=== PATIENT | female | born 1960 | race Caucasian/White ===

== ENCOUNTER → 2017-05-19 13:53 | Outpatient (CLI) | payer SELFPAY ==
[2017-05-19 17:43] LABS: Anion Gap 6 (5-15); BUN 21 mg/dL (7-18); BUN/Creat Ratio 22.6 RATIO (10-20); Chloride 105 mmol/L (98-107); Creatinine, Serum 0.93 mg/dL (0.55-1.02); EST Glomerular Filtration Rate 65 mL/min (>60); Est Glom Filt Rate - Afr Amer 79 mL/min (>60); Glucose 110 mg/dL (74-106); Sodium Level 140 mmol/L (136-145); Thyroid Stim Hormone (TSH) 1.91 uIU/mL (0.358-3.74)
== END ==
PROVIDERS: Family Provider Family Medicine; PCP Family Medicine; Visit Provider Family Medicine
DX: E03.9 Hypothyroidism, unspecified (principal); E11.9 Type 2 diabetes mellitus without complications
CPT/HCPCS: 36415; 80048; 84443

== ENCOUNTER → 2017-12-06 15:22 | Outpatient (CLI) | payer SELFPAY ==
[2017-12-06 18:03] LABS: Anion Gap 9 (5-15); BUN 17 mg/dL (7-18); BUN/Creat Ratio 17.3 RATIO (10-20); Calcium,Total 9.4 mg/dL (8.5-10.1); Chloride 101 mmol/L (98-107); Cholesterol 248 mg/dL (200); Creatinine, Serum 0.98 mg/dL (0.55-1.02); EST Glomerular Filtration Rate 62 mL/min (>60); Est Glom Filt Rate - Afr Amer 75 mL/min (>60); Glucose 127 mg/dL (74-106); High Density Lipoprotein 42 mg/dL; Potassium 4.1 mmol/L (3.5-5.1); Sodium Level 139 mmol/L (136-145); Thyroid Stim Hormone (TSH) 3.01 uIU/mL (0.358-3.74); Triglycerides 280 mg/dL; Very Low Density Lipoprotein 56 mg/dL (5-40)
== END ==
PROVIDERS: Family Provider Family Medicine; PCP Family Medicine; Visit Provider Family Medicine
DX: E11.9 Type 2 diabetes mellitus without complications (principal); E03.9 Hypothyroidism, unspecified
CPT/HCPCS: 36415; 80048; 80061; 84443

== ENCOUNTER → 2018-06-06 | Outpatient (CLI) | payer SELFPAY ==
[2018-06-06 14:35] LABS: Cholesterol 199 mg/dL (200); High Density Lipoprotein 38 mg/dL; Triglycerides 319 mg/dL; Very Low Density Lipoprotein 64 mg/dL (5-40)
== END | disposition home or self-care (01) ==
PROVIDERS: Family Provider Family Medicine; PCP Family Medicine; Referring Provider Family Medicine; Visit Provider Family Medicine
DX: E11.9 Type 2 diabetes mellitus without complications (principal)
CPT/HCPCS: 36415; 80061

== ENCOUNTER → 2018-12-10 11:38 | Outpatient (CLI) | payer SELFPAY ==
[2018-12-10 14:49] LABS: Anion Gap 10 (5-15); BUN 21 mg/dL (7-18); BUN/Creat Ratio 20.6 RATIO (10-20); Calcium,Total 9.4 mg/dL (8.5-10.1); Chloride 100 mmol/L (98-107); Cholesterol 247 mg/dL (200); Creatinine, Serum 1.02 mg/dL (0.55-1.02); EST Glomerular Filtration Rate 59 mL/min (>60); Est Glom Filt Rate - Afr Amer 71 mL/min (>60); Glucose 164 mg/dL (74-106); High Density Lipoprotein 51 mg/dL; Potassium 4.5 mmol/L (3.5-5.1); Sodium Level 138 mmol/L (136-145); Thyroid Stim Hormone (TSH) 5.68 uIU/mL (0.358-3.74); Triglycerides 220 mg/dL; Very Low Density Lipoprotein 44 mg/dL (5-40)
== END ==
PROVIDERS: Family Provider Family Medicine; PCP Family Medicine; Visit Provider Family Medicine
DX: E03.9 Hypothyroidism, unspecified (principal); E11.9 Type 2 diabetes mellitus without complications
CPT/HCPCS: 36415; 80048; 80061; 84443

== ENCOUNTER → 2019-06-12 14:04 | Outpatient (CLI) | payer SELFPAY ==
[2019-06-12 16:07] LABS: Anion Gap 7 (5-15); BUN 20 mg/dL (7-18); BUN/Creat Ratio 21.5 RATIO (10-20); Calcium,Total 9.4 mg/dL (8.5-10.1); Chloride 103 mmol/L (98-107); Cholesterol 223 mg/dL (200); Creatinine, Serum 0.93 mg/dL (0.55-1.02); EST Glomerular Filtration Rate 65 mL/min (>60); Est Glom Filt Rate - Afr Amer 79 mL/min (>60); Free T3 2.6 pg/mL (2.18-3.98); Glucose 118 mg/dL (74-106); High Density Lipoprotein 40 mg/dL; Potassium 3.8 mmol/L (3.5-5.1); Sodium Level 138 mmol/L (136-145); T4 Total, Thyroxin 14.5 ug/dL (4.8-13.9); Thyroid Stim Hormone (TSH) 1.37 uIU/mL (0.358-3.74); Triglycerides 274 mg/dL; Very Low Density Lipoprotein 55 mg/dL (5-40)
== END ==
PROVIDERS: PCP Family Medicine; Visit Provider Family Medicine
DX: E11.9 Type 2 diabetes mellitus without complications (principal); E03.9 Hypothyroidism, unspecified
CPT/HCPCS: 36415; 80048; 80061; 84436; 84443; 84481

== ENCOUNTER → 2019-12-12 13:50 | Outpatient (CLI) | payer SELFPAY ==
[2019-12-12 16:15] LABS: Anion Gap 5 (5-15); BUN 14 mg/dL (7-18); BUN/Creat Ratio 13.9 RATIO (10-20); Calcium,Total 9.6 mg/dL (8.5-10.1); Chloride 104 mmol/L (98-107); Cholesterol 233 mg/dL (200); Creatinine, Serum 1.01 mg/dL (0.55-1.02); EST Glomerular Filtration Rate 59 mL/min (>60); Est Glom Filt Rate - Afr Amer 71 mL/min (>60); Glucose 163 mg/dL (74-106); High Density Lipoprotein 46 mg/dL; Potassium 4.2 mmol/L (3.5-5.1); Sodium Level 140 mmol/L (136-145); Thyroid Stim Hormone (TSH) 2.76 uIU/mL (0.358-3.74); Triglycerides 222 mg/dL; Very Low Density Lipoprotein 44 mg/dL (5-40)
== END ==
PROVIDERS: PCP Family Medicine; Referring Provider Family Medicine; Visit Provider Family Medicine
DX: I10 Essential (primary) hypertension (principal); E03.9 Hypothyroidism, unspecified
CPT/HCPCS: 36415; 80048; 80061; 84443

== ENCOUNTER → 2020-12-17 13:58 | Outpatient (CLI) | payer SELFPAY ==
[2020-12-17 15:39] LABS: Microalbumin,Random Urine 14.7 mg/L (NO RANGE EST.); Microalbumin:Creatinine Ratio 19.7 mg/g CRE (<30 mg/g CRE)
[2020-12-17 15:59] LABS: Anion Gap 7 (5-15); BUN 20 mg/dL (7-18); BUN/Creat Ratio 18.9 RATIO (10-20); Calcium,Total 9.1 mg/dL (8.5-10.1); Chloride 103 mmol/L (98-107); Cholesterol 246 mg/dL (200); Creatinine, Serum 1.06 mg/dL (0.55-1.02); EST Glomerular Filtration Rate 56 mL/min (>60); Est Glom Filt Rate - Afr Amer 67 mL/min (>60); Free T3 2.5 pg/mL (2.18-3.98); Glucose 129 mg/dL (74-106); High Density Lipoprotein 42 mg/dL; Sodium Level 139 mmol/L (136-145); T4 Free Direct 1.39 ng/dL (0.76-1.46); Thyroid Stim Hormone (TSH) 1.85 uIU/mL (0.358-3.74); Triglycerides 191 mg/dL; Very Low Density Lipoprotein 38 mg/dL (5-40)
== END ==
PROVIDERS: PCP Family Medicine; Referring Provider Family Medicine; Visit Provider Family Medicine
DX: E11.9 Type 2 diabetes mellitus without complications (principal); E03.9 Hypothyroidism, unspecified
CPT/HCPCS: 36415; 80048; 80061; 82043; 82570; 84439; 84443; 84481

== ENCOUNTER 2021-03-17 14:26 | Outpatient (CLI) | payer MEDICAID, SELFPAY ==
[2021-03-17 18:51] LABS: Anion Gap 10 (5-15); BUN 23 mg/dL (7-18); BUN/Creat Ratio 21.5 RATIO (10-20); Calcium,Total 9.4 mg/dL (8.5-10.1); Chloride 100 mmol/L (98-107); Cholesterol 264 mg/dL (200); Creatinine, Serum 1.07 mg/dL (0.55-1.02); EST Glomerular Filtration Rate 55 mL/min (>60); Est Glom Filt Rate - Afr Amer 67 mL/min (>60); Free T3 2.2 pg/mL (2.18-3.98); Glucose 156 mg/dL (74-106); High Density Lipoprotein 44 mg/dL; Potassium 4.1 mmol/L (3.5-5.1); Sodium Level 135 mmol/L (136-145); T4 Free Direct 1.34 ng/dL (0.76-1.46); Thyroid Stim Hormone (TSH) 2.26 uIU/mL (0.358-3.74); Triglycerides 315 mg/dL; Very Low Density Lipoprotein 63 mg/dL (5-40)
== END 2021-03-17 23:59 | disposition home or self-care (01) ==
LOC: MTLAB 14:28
PROVIDERS: PCP Family Medicine; Referring Provider Family Medicine; Visit Provider Family Medicine
DX: E03.9 Hypothyroidism, unspecified (principal); E11.9 Type 2 diabetes mellitus without complications
CPT/HCPCS: 36415; 80048; 80061; 84439; 84443; 84481

== ENCOUNTER → 2021-06-14 | Outpatient (CLI) | payer MEDICAID, SELFPAY ==
[2021-06-14 18:32] LABS: Cholesterol 199 mg/dL (200); High Density Lipoprotein 43 mg/dL; Triglycerides 282 mg/dL; Very Low Density Lipoprotein 56 mg/dL (5-40)
== END | disposition home or self-care (01) ==
LOC: MTLAB 14:29
PROVIDERS: PCP Family Medicine; Referring Provider Family Medicine; Visit Provider Family Medicine
DX: I10 Essential (primary) hypertension (principal)
CPT/HCPCS: 36415; 80061

== ENCOUNTER → 2021-09-13 | Outpatient (CLI) | payer MEDICAID, SELFPAY ==
[2021-09-13 15:56] LABS: ALB/GLOB Ratio 1.1 RATIO (0.9-2.4); AST(SGOT) 17 U/L (15-37); Alanine Aminotransfer ALT/SGPT 41 U/L (13-56); Albumin, Serum 3.8 g/dL (3.2-5.0); Alkaline Phosphatase 78 U/L (45-117); Anion Gap 6 (5-15); BUN 16 mg/dL (7-18); BUN/Creat Ratio 16.4 RATIO (10-20); Chloride 103 mmol/L (98-107); Cholesterol 158 mg/dL (200); Creatinine, Serum 0.97 mg/dL (0.55-1.02); EST Glomerular Filtration Rate 61 mL/min (>60); Est Glom Filt Rate - Afr Amer 74 mL/min (>60); Free T3 2.2 pg/mL (2.18-3.98); Globulin 3.6 g/dL (2.2-4.2); Glucose 161 mg/dL (74-106); High Density Lipoprotein 42 mg/dL; Protein, Total 7.4 g/dL (6.4-8.2); Sodium Level 138 mmol/L (136-145); T4 Free Direct 1.46 ng/dL (0.76-1.46); Thyroid Stim Hormone (TSH) 1.06 uIU/mL (0.358-3.74); Triglycerides 200 mg/dL; Very Low Density Lipoprotein 40 mg/dL (5-40)
== END | disposition home or self-care (01) ==
LOC: MTLAB 14:03
PROVIDERS: PCP Family Medicine; Referring Provider Family Medicine; Visit Provider Family Medicine
DX: E78.5 Hyperlipidemia, unspecified (principal); E03.9 Hypothyroidism, unspecified
CPT/HCPCS: 36415; 80053; 80061; 84439; 84443; 84481

== ENCOUNTER → 2021-12-10 | Outpatient (CLI) | payer MEDICAID, SELFPAY ==
[2021-12-10 14:58] LABS: Absolute Lymphocyte Count 2.13 X10^3/uL (0.83-4.51); Absolute Neutrophil Count 6.7 X10^3/uL (2.0-7.7); Basophil# 0.07 X10^3/uL; Basophil% 0.7 % (0-1); Eosinophil# 0.14 X10^3/uL; Eosinophils% 1.4 % (0-5); Hematocrit 51.4 % (37-47); Hemoglobin 16.2 g/dL (12.0-15.0); Lymphocyte # 2.13 X10^3/ul (0.83-4.51); Lymphocyte % 21.9 % (19-41); Mean Corp Hgb Conc 31.5 g/dL (32-36); Mean Corpuscular Hgb 28.8 pg (27.0-32.0); Mean Corpuscular Volume 91.3 fL (81-99); Mean Platelet Vol. 9.7 fl (6.2-12.0); Monocyte# 0.68 X10^3/uL; NRBC Flagged by Analyzer 0 % (0-5); Neutrophil # 6.67 X10^3/uL (2.7-7.7); Neutrophil % 68.6 % (47-70); Platelet Count 353 K/mm3 (150-450); RBC Distribution Width CV 14.2 % (11.6-14.6); Red Blood Count 5.63 M/mm3 (4.2-5.4); White Blood Count 9.7 K/mm3 (4.4-11.0)
[2021-12-10 15:58] LABS: Anion Gap 9 (5-15); BUN 21 mg/dL (7-18); Calcium,Total 9.8 mg/dL (8.5-10.1); Chloride 102 mmol/L (98-107); Cholesterol 183 mg/dL (200); EST Glomerular Filtration Rate 59 mL/min (>60); Est Glom Filt Rate - Afr Amer 72 mL/min (>60); Free T3 2.1 pg/mL (2.18-3.98); Glucose 179 mg/dL (74-106); High Density Lipoprotein 45 mg/dL; Potassium 4.3 mmol/L (3.5-5.1); Sodium Level 137 mmol/L (136-145); T4 Free Direct 1.33 ng/dL (0.76-1.46); Thyroid Stim Hormone (TSH) 1.53 uIU/mL (0.358-3.74); Triglycerides 234 mg/dL; Very Low Density Lipoprotein 47 mg/dL (5-40)
== END | disposition home or self-care (01) ==
LOC: MTLAB 13:55
PROVIDERS: PCP Family Medicine; Referring Provider Family Medicine; Visit Provider Family Medicine
DX: E03.9 Hypothyroidism, unspecified (principal); E11.9 Type 2 diabetes mellitus without complications; R53.83 Other fatigue
CPT/HCPCS: 36415; 80048; 80061; 84439; 84443; 84481; 85025

== ENCOUNTER → 2022-10-27 | Outpatient (CLI) | payer MEDICAID, SELFPAY ==
[2022-10-27 16:02] LABS: Anion Gap 4 (5-15); BUN 15 mg/dL (7-18); BUN/Creat Ratio 15.6 RATIO (10-20); Calcium,Total 9.1 mg/dL (8.5-10.1); Chloride 106 mmol/L (98-107); Cholesterol 135 mg/dL (200); Creatinine, Serum 0.96 mg/dL (0.55-1.02); EST Glomerular Filtration Rate 62 mL/min (>60); Est Glom Filt Rate - Afr Amer 75 mL/min (>60); Free T3 2.2 pg/mL (2.18-3.98); Glucose 121 mg/dL (74-106); High Density Lipoprotein 43 mg/dL; Potassium 3.8 mmol/L (3.5-5.1); Sodium Level 139 mmol/L (136-145); Thyroid Stim Hormone (TSH) 0.63 uIU/mL (0.358-3.74); Triglycerides 146 mg/dL; Very Low Density Lipoprotein 29 mg/dL (5-40)
[2022-10-27 17:56] LABS: Microalbumin,Random Urine 16.8 mg/L (NO RANGE EST.); Microalbumin:Creatinine Ratio 11.3 mg/g CRE (<30 mg/g CRE)
== END | disposition home or self-care (01) ==
LOC: MTLAB 13:50
PROVIDERS: PCP Family Medicine; Visit Provider Family Medicine
DX: E03.9 Hypothyroidism, unspecified (principal); E11.9 Type 2 diabetes mellitus without complications
CPT/HCPCS: 36415; 80048; 80061; 82043; 82570; 84439; 84443; 84481

== ENCOUNTER → 2022-11-10 | Outpatient (CLI) | payer MEDICAID, SELFPAY ==
--- NOTE | 2022-11-10 12:58 | BI_ITS ---
MAMMOGRAPHY - BILATERAL SCREENING REASON FOR EXAM: Female, 62 years old. Routine annual screening examination. PERTINENT HISTORY: Non-contributory. TECHNIQUE: Digital bilateral breast lamberto (3D mammographic acquisition) in the CC and MLO projections. 2-D mediolateral oblique (MLO) and craniocaudad (CC) views of both breasts were obtained. CAD: Full Field Digital Mammography with Computer Added Detection was performed. COMPARISON: Comparison is made with prior examination dated April 27, 2013. FINDINGS: Breast Composition: There are scattered areas of fibroglandular density. There are no dominant masses or suspicious calcifications. Stable small bilateral axillary lymph nodes. No other significant abnormalities are identified. There has been no significant change since the prior study. BI/SCRN MAMM (CAD)W/LAMBERTO BILAT IMPRESSION: Stable bilateral screening mammogram. Yearly follow-up mammogram recommended. (A) ASSESSMENT CATEGORY: BIRADS Category 2: Benign. A letter regarding these results will be sent to the patient by the facility within 30 days. Approximately 10% of breast cancers are not detected by mammography. A normal mammogram should not delay biopsy of a clinically suspicious abnormality. [id number] Electronically Signed: Lance Slaughter MD at 13:57 EDT ,
== END | disposition home or self-care (01) ==
LOC: OPBI 12:56
PROVIDERS: PCP Family Medicine; Referring Provider Family Medicine; Visit Provider Family Medicine
DX: Z12.31 Encounter for screening mammogram for malignant neoplasm of breast (principal)
CPT/HCPCS: 77063; 77067

== ENCOUNTER → 2023-03-17 | Outpatient (CLI) | payer MEDICARE, SELFPAY ==
--- OUTSIDE RECORDS SUMMARY | 2023-03-17 15:25 | XMS RPT_ITS | CCD ---
Author Name Unknown Address [address] [place] [address] Organization [facility] Care Team Providers Care Welder Production Line Combination Name Role Phone Savannah López N Unavailable Savannah López N Unavailable Nakia Lópezica N Unavailable Nakia Lópezica N Unavailable Nakia Lópezica N Unavailable Medications Completed/Discontinued Medications Medication Drug Class(es) Dates Sig (Normalized) Sig (Original) acetaminophen / codeine (10 sources) Opioid Agonist Start: 10-22-2013 End: 02-20-2014 ACETAMINOPHEN-CODEI NE 300-30 MG TABS as needed ACETAMINOPHEN-CODEI NE [id number] Randy Elias Linares Problems Active Problems Problem Classification Problem Date Documented Date Episodic/Chronic Osteoarthritis (4 sources) Osteoarthritis of knee; Translations: [Osteoarthritis of knee, unspecified] Onset: 06-21-2016 06-23-2016 Chronic Other non-traumatic joint disorders (5 sources) Polyarthropathy; Translations: [Polyarthritis, unspecified] Onset: 02-10-2014 02-10-2014 Chronic Past or Other Problems Problem Classification Problem Date Documented Da te Episodic/Chronic Intestinal infection (5 sources) Infectious gastroenteritis and colitis, unspecified; Translations: [Infectious gastroenteritis and colitis, unspecified] Onset: 02-10-2014 02-10-2014 Episodic Other connective tissue disease (11 sources) Trochanteric bursitis; Translations: [Tendinitis AND/OR tenosynovitis of wrist AND/OR hand] Onset: 10-22-2013 11-19-2013 Episodic Other connective tissue disease (2 sources) Tendinitis AND/OR tenosynovitis of wrist AND/OR hand; Translations: [Other synovitis and tenosynovitis, multiple sites] Onset: 10-22-2013 10-22-2013 Episodic Other connective tissue disease (2 sources) Hand pain; Translations: [Pain in left hand] Onset: 10-22-2013 10-22-2013 Episodic Other gastrointestinal disorders (5 sources) Diarrhea; Translations: [Diarrhea, unspecified] Onset: 02-20-2014 02-21-2014 Episodic Other non-traumatic joint disorders (13 sources) Knee joint effusion; Translations: [Knee pain] Onset: 11-19-2013 01-21-2014 Episodic Other non-traumatic joint disorders (2 sources) Hip pain; Translations: [Pain in unspecified hip] Onset: 11-19-2013 11-19-2013 Episodic Other non-traumatic joint disorders (4 sources) Knee pain; Translations: [Pain in right knee] Onset: 01-21-2014 06-21-2016 Episodic Unclassified (5 sources) Encounter for screening for malignant neoplasm of colon; Translations: [Encounter for screening for malignant neoplasm of colon] Onset: 02-20-2014 02-20-2014 Episodic Results Test Name Value Interpretation Reference Range Facil ity Vital Signs Date Time Vital Sign Value Performing Clinician Facility 02-20-2014 11:35-0500 BMI (Body Mass Index) 39.22 kg/m2 [facility] Work Phone: 02-20-2014 11:35-0500 Body Temperature 98.9 [degF] [facility] Work Phone: 02-20-2014 11:35-0500 Body weight 110.22 kg [facility] Work Phone: 02-20-2014 11:35-0500 BP Diastolic 76 mm[Hg] [facility] Work Phone: 02-20-2014 11:35-0500 BP Systolic 128 mm[Hg] [facility] Work Phone: 02-20-2014 11:35-0500 BSA (Body Surface Area) 2.17 m2 [facility] [place] Work Phone: 02-20-2014 11:35-0500 Pulse (Heart Rate) 96 /min Savannah López [facility] Work Phone: 02-20-2014 11:35-0500 Respiratory Rate 16 /min [facility] Work Phone: 02-20-2014 11:35-0500 Weight 110.22 kg Savannah López [facility] Work Phone: 02-10-2014 15:06-0500 Pulse Oximetry 92 % [facility] Work Phone: 10-22-2013 10:03-0400 Height 167.64 cm [facility] Work Phone: Procedures Date Procedure Procedure Detail Performing Clinician Start: 06-21-2016 End: 06-21-2016 Documentation of current medications Savannah López Start: 06-21-2016 End: 06-21-2016 Smoking cessation education Savannah López Start: 02-10-2014 End: 02-12-2014 *CDIF - Clostridium Diff. Toxin Stool Betsey Gutierrez MD Start: 02-10-2014 End: 02-12-2014 *CMP Complete Metabolic Panel Betsey Gutierrez MD Start: 02-10-2014 End: 02-12-2014 *Hep C Antibody, Total Betsey Gutierrez MD Start: 02-10-2014 End: 02-12-2014 *MISC - Miscellaneous Lab Test #1 Betsey Gutierrez MD Start: 02-10-2014 End: 02-12-2014 *SPEP (Serum Protein Electrophoresis) Betsey Gutierrez MD Start: 02-10-2014 End: 02-12-2014 Bacteria identified in Urine by Culture Betsey Gutierrez MD Start: 02-10-2014 End: 02-12-2014 Ova and parasites identified in Stool by Concentration Betsey Gutierrez MD Start: 02-10-2014 End: 02-12-2014 *CDIF - Clostridium Diff. Toxin Stool Betsey Gutierrez MD Start: 02-10-2014 End: 02-12-2014 *CMP Complete Metabolic Panel Betsey Gutierrez MD Start: 02-10-2014 End: 02-12-2014 *Hep C Antibody, Total Betsey Gutierrez MD Start: 02-10-2014 End: 02-12-2014 *MISC - Miscellaneous Lab Test #1 Betsey Gutierrez MD Start: 02-10-2014 End: 02-12-2014 *SPEP (Serum Protein Electrophoresis) Betsey Gutierrez MD Start: 02-10-2014 End: 02-12-2014 Ova & parasites in stool Betsey Gutierrez MD Start: 02-10-2014 End: 02-12-2014 Urine culture, bacteria Betsey Villarreal Plan of Treatment Date Care Activity Detail Author Start: 06-21-2016 End: 06-21-2016 Radiologic exam knee complete 4/more views X-Ray, Knee [facility] Work Phone: Start: 06-21-2016 End: 06-21-2016 X-ray exam, knee, 4 or more X-Ray, Knee [facility] Work Phone: Start: 02-20-2014 End: 02-20-2014 Colonoscopy flx dx w/collj spec when pfrmd Colonoscopy [facility] Work Phone: Start: 02-20-2014 End: 02-20-2014 Diagnostic colonoscopy Colonoscopy [facility] Work Phone: Start: 02-10-2014 End: 02-12-2014 *CDIF - Clostridium Diff. Toxin Stool *CDIF - Clostridium Diff. Toxin Stool [facility] Work Phone: Start: 02-10-2014 End: 02-12-2014 *CMP Complete Metabolic Panel *CMP Complete Metabolic Panel [facility] Work Phone: Start: 02-10-2014 End: 02-12-2014 *Hep C Antibody, Total *Hep C Antibody, Total [facility] Work Phone: Start: 02-10-2014 End: 02-12-2014 *MISC - Miscellaneous Lab Test #1 *MISC - Miscellaneous Lab Test #1 [facility] Work Phone: Start: 02-10-2014 End: 02-12-2014 *SPEP (Serum Protein Electrophoresis) *SPEP (Serum Protein Electrophoresis) [facility] Work Phone: Start: 02-10-2014 End: 02-12-2014 Ova & parasites in stool *Ova & Parasites, Stool [facility] Work Phone: Start: 02-10-2014 End: 02-12-2014 Urine culture, bacteria *C&S, Routine Bacteria [facility] Work Phone: Start: 02-10-2014 End: 02-12-2014 *CDIF - Clostridium Diff. Toxin Stool *CDIF - Clostridium Diff. Toxin Stool [facility] Work Phone: Start: 02-10-2014 End: 02-12-2014 *CMP Complete Metabolic Panel *CMP Complete Metabolic Panel [facility] Work Phone: Start: 02-10-2014 End: 02-12-2014 *Hep C Antibody, Total *Hep C Antibody, Total [facility] Work Phone: Start: 02-10-2014 End: 02-12-2014 *MISC - Miscellaneous Lab Test #1 *MISC - Miscellaneous Lab Test #1 [facility] Work Phone: Start: 02-10-2014 End: 02-12-2014 *SPEP (Serum Protein Electrophoresis) *SPEP (Serum Protein Electrophoresis) [facility] Work Phone: Start: 02-10-2014 End: 02-12-2014 Ova & parasites in stool *Ova & Parasites, Stool [facility] Work Phone: Start: 02-10-2014 End: 02-12-2014 Urine culture, bacteria *C&S, Routine Bacteria [facility] Work Phone: Start: 02-04-2014 End: 02-04-2014 Mri any jt lower extrem w/o contrast matrl MRI Joint Lower Extremity [facility] Work Phone: Start: 02-04-2014 End: 02-04-2014 Mri jnt of lwr extre w/o dye MRI Joint Lower Extremity [facility] Work Phone: Start: 01-21-2014 End: 01-21-2014 *CBC with Differential *CBC with Differential [facility] Work Phone: Start: 01-21-2014 End: 01-21-2014 Bacteria identified in Body fluid by Culture *CUBF- Culture, Body Fluid [facility] Work Phone: Start: 01-21-2014 End: 01-21-2014 Crystals [type] in Body fluid by Light microscopy *CURT - Crystals, Body Fluid [facility] Work Phone: Start: 01-21-2014 End: 01-21-2014 Glucose [Mass/volume] in Body fluid *GLUBF - Glucose, Body Fluid [facility] Work Phone: Start: 01-21-2014 End: 01-21-2014 Microscopic observation *GS - Gram Stain [facility] Work Phone: Start: 01-21-2014 End: 01-21-2014 Protein in fluid *PROBF - Protein, Body Fluid [facility] Work Phone: Start: 01-21-2014 End: 01-21-2014 Radiologic exam knee complete 4/more views X-Ray, Knee [facility] Work Phone: Start: 01-21-2014 End: 01-21-2014 Radiologic examination pelvis 1/2 views X-Ray, Pelvis [facility] Work Phone: Start: 01-21-2014 End: 01-21-2014 X-ray exam of hip X-Ray, Hip Unilateral [facility] Work Phone: Start: 01-21-2014 End: 01-21-2014 *CBC with Differential *CBC with Differential [facility] Work Phone: Start: 01-21-2014 End: 01-21-2014 Bacteria identified in Body fluid by Culture *CUBF- Culture, Body Fluid [facility] Work Phone: Start: 01-21-2014 End: 01-21-2014 Crystals [type] in Body fluid by Light microscopy *CURT - Crystals, Body Fluid [facility] Work Phone: Start: 01-21-2014 End: 01-21-2014 Glucose *GLUBF - Glucose, Body Fluid [facility] Work Phone: Start: 01-21-2014 End: 01-21-2014 Glucose mass conc (Body fld) *GLUBF - Glucose, Body Fluid [facility] Work Phone: Start: 01-21-2014 End: 01-21-2014 Microscopic observation *GS - Gram Stain [facility] Work Phone: Start: 01-21-2014 End: 01-21-2014 Protein in fluid *PROBF - Protein, Body Fluid [facility] Work Phone: Start: 01-21-2014 End: 01-21-2014 X-ray exam of hip X-Ray, Hip Unilateral [facility] Work Phone: Start: 01-21-2014 End: 01-21-2014 X-ray exam of pelvis X-Ray, Pelvis [facility] Work Phone: Start: 01-21-2014 End: 01-21-2014 X-ray exam, knee, 4 or more X-Ray, Knee [facility] Work Phone: Start: 10-22-2013 End: 10-22-2013 Radex hand minimum 3 views X-Ray, Hand [facility] Work Phone: Start: 10-22-2013 End: 10-22-2013 X-ray exam of hand X-Ray, Hand [facility] Work Phone: Patient Education Medications [facility] Work Phone: Additional Source Comments FOR RECORDS PERTAINING TO PATIENTS WHO ARE OR HAVE BEEN ENROLLED IN A CHEMICAL DEPENDENCY/SUBSTANCEABUSE PROGRAM, SOME INFORMATION MAY BE OMITTED. This clinical summary was aggregated from multiple sources. Caution should be exercised in using it in the provision of clinical care. This summary normalizes information from multiple sources, and as a consequence, information in this document may materially change the coding, format and clinical context of patient data. In addition, data may be omitted in some cases. CLINICAL DECISIONS SHOULD BE BASED ON THE PRIMARY CLINICAL RECORDS. [facility] [employer] [facility]. provides no warranty or guarantee of the accuracy or completeness of information in this document.
[2023-03-17 17:59] LABS: Anion Gap 7 (5-15); BUN 18 mg/dL (7-18); BUN/Creat Ratio 18.4 RATIO (10-20); Calcium,Total 9.6 mg/dL (8.5-10.1); Chloride 104 mmol/L (98-107); Cholesterol 156 mg/dL (200); Creatinine, Serum 0.98 mg/dL (0.55-1.02); EST Glomerular Filtration Rate 61 mL/min (>60); Est Glom Filt Rate - Afr Amer 73 mL/min (>60); Free T3 2.3 pg/mL (2.18-3.98); Glucose 127 mg/dL (74-106); High Density Lipoprotein 47 mg/dL; Potassium 4.1 mmol/L (3.5-5.1); Sodium Level 140 mmol/L (136-145); T4 Free Direct 1.54 ng/dL (0.76-1.46); Thyroid Stim Hormone (TSH) 0.77 uIU/mL (0.358-3.74); Triglycerides 140 mg/dL; Very Low Density Lipoprotein 28 mg/dL (5-40)
== END | disposition home or self-care (01) ==
LOC: MTLAB 14:14
PROVIDERS: PCP Family Medicine; Referring Provider Family Medicine; Visit Provider Family Medicine
DX: E03.9 Hypothyroidism, unspecified (principal); I10 Essential (primary) hypertension
CPT/HCPCS: 36415; 80048; 80061; 84439; 84443; 84481

== ENCOUNTER → 2023-06-16 | Outpatient (CLI) | payer MEDICARE, SELFPAY ==
[2023-06-16 18:05] LABS: AST(SGOT) 29 U/L (15-37); Alanine Aminotransfer ALT/SGPT 53 U/L (13-56); Albumin, Serum 3.8 g/dL (3.2-5.0); Alkaline Phosphatase 78 U/L (45-117); Anion Gap 9 (5-15); BUN 19 mg/dL (7-18); BUN/Creat Ratio 17.4 RATIO (10-20); Calcium,Total 9.5 mg/dL (8.5-10.1); Chloride 105 mmol/L (98-107); Cholesterol 125 mg/dL (200); Creatinine, Serum 1.09 mg/dL (0.55-1.02); EST Glomerular Filtration Rate 54 mL/min (>60); Est Glom Filt Rate - Afr Amer 65 mL/min (>60); Free T3 2.1 pg/mL (2.18-3.98); Globulin 3.8 g/dL (2.2-4.2); Glucose 140 mg/dL (74-106); High Density Lipoprotein 44 mg/dL; Potassium 3.9 mmol/L (3.5-5.1); Protein, Total 7.6 g/dL (6.4-8.2); Sodium Level 139 mmol/L (136-145); T4 Free Direct 1.55 ng/dL (0.76-1.46); Thyroid Stim Hormone (TSH) 0.74 uIU/mL (0.358-3.74); Triglycerides 147 mg/dL; Very Low Density Lipoprotein 29 mg/dL (5-40)
== END | disposition home or self-care (01) ==
LOC: MFPLAB 14:00
PROVIDERS: PCP Family Medicine; Visit Provider Family Medicine
DX: E03.9 Hypothyroidism, unspecified (principal); E11.9 Type 2 diabetes mellitus without complications
CPT/HCPCS: 36415; 80053; 80061; 84439; 84443; 84481

== ENCOUNTER → 2023-12-15 | Outpatient (CLI) | payer MEDICARE, SELFPAY ==
[2023-12-15 18:19] LABS: ALB/GLOB Ratio 1.1 RATIO (0.9-2.4); AST(SGOT) 23 U/L (15-37); Alanine Aminotransfer ALT/SGPT 57 U/L (13-56); Albumin, Serum 3.9 g/dL (3.2-5.0); Alkaline Phosphatase 78 U/L (45-117); Anion Gap 8 (5-15); BUN 21 mg/dL (7-18); BUN/Creat Ratio 19.3 RATIO (10-20); Calcium,Total 9.4 mg/dL (8.5-10.1); Chloride 106 mmol/L (98-107); Cholesterol 137 mg/dL (200); Creatinine, Serum 1.09 mg/dL (0.55-1.02); EST Glomerular Filtration Rate 53 mL/min (>60); Est Glom Filt Rate - Afr Amer 65 mL/min (>60); Free T3 2.5 pg/mL (2.18-3.98); Globulin 3.6 g/dL (2.2-4.2); Glucose 147 mg/dL (74-106); High Density Lipoprotein 62 mg/dL; Protein, Total 7.5 g/dL (6.4-8.2); Sodium Level 138 mmol/L (136-145); T4 Free Direct 1.52 ng/dL (0.76-1.46); Thyroid Stim Hormone (TSH) 0.222 uIU/mL (0.358-3.740); Triglycerides 115 mg/dL; Very Low Density Lipoprotein 23 mg/dL (5-40)
== END | disposition home or self-care (01) ==
PROVIDERS: PCP Family Medicine; Visit Provider Family Medicine
DX: E03.9 Hypothyroidism, unspecified (principal); E11.9 Type 2 diabetes mellitus without complications
CPT/HCPCS: 36415; 80053; 80061; 84439; 84443; 84481

== ENCOUNTER → 2024-02-08 | Outpatient (CLI) | payer MEDICARE, SELFPAY ==
[2024-02-08 16:05] LABS: Free T3 1.9 pg/mL (2.18-3.98); Thyroid Stim Hormone (TSH) 0.843 uIU/mL (0.358-3.740)
== END | disposition home or self-care (01) ==
LOC: MFPLAB 11:44
PROVIDERS: PCP Family Medicine; Visit Provider Family Medicine
DX: E03.9 Hypothyroidism, unspecified (principal)
CPT/HCPCS: 36415; 84443; 84481

== ENCOUNTER → 2024-03-18 | Outpatient (CLI) | payer MEDICARE, SELFPAY ==
[2024-03-18 20:00] LABS: AST(SGOT) 29 U/L (15-37); Alanine Aminotransfer ALT/SGPT 59 U/L (13-56); Albumin, Serum 3.6 g/dL (3.2-5.0); Alkaline Phosphatase 75 U/L (45-117); Anion Gap 8 (5-15); BUN 16 mg/dL (7-18); BUN/Creat Ratio 17.1 RATIO (10-20); Calcium,Total 9.1 mg/dL (8.5-10.1); Chloride 105 mmol/L (98-107); Cholesterol 174 mg/dL (200); Creatinine, Serum 0.93 mg/dL (0.55-1.02); EST Glomerular Filtration Rate 64 mL/min (>60); Est Glom Filt Rate - Afr Amer 77 mL/min (>60); Free T3 2.1 pg/mL (2.18-3.98); Globulin 3.7 g/dL (2.2-4.2); Glucose 173 mg/dL (74-106); High Density Lipoprotein 63 mg/dL; Potassium 3.5 mmol/L (3.5-5.1); Protein, Total 7.3 g/dL (6.4-8.2); Sodium Level 138 mmol/L (136-145); T4 Free Direct 1.37 ng/dL (0.76-1.46); Triglycerides 136 mg/dL; Very Low Density Lipoprotein 27 mg/dL (5-40)
[2024-03-18 20:32] LABS: Protein, Urine (Random) 21.6 mg/dL (<11.9); Protein:Creat Ratio 272 mg/g CRE (0-200)
== END | disposition home or self-care (01) ==
LOC: MFPLAB 14:03
PROVIDERS: PCP Family Medicine; Referring Provider Family Medicine; Visit Provider Family Medicine
DX: E03.9 Hypothyroidism, unspecified (principal); E11.9 Type 2 diabetes mellitus without complications
CPT/HCPCS: 36415; 80053; 80061; 82570; 84156; 84439; 84443; 84481

== ENCOUNTER → 2024-03-27 | Outpatient (CLI) | payer MEDICARE, SELFPAY ==
--- NOTE | 2024-03-27 14:20 | BRBX_PTH ---
PATIENT: NANETTE WILHELM LOC: [facility] U#:[id number] AGE/SX: 64/F ROOM: RE03/27/[address]: Dr. Liu Segundo MD : 1960 BED: DIS: 03/27/2024 SPEC #: [id number] RECD: 03/27/24 17:38 STATUS: ROLAND JAIR #: [id number] MASOUD: 03/27/24 14:[address]: Liu Segundo DEPT: SURGICAL PATHOLOGY RECD BY: Huong Chaudhary Tissues: Left breast, NOS Procedures: Surgery Specimen Level IV HEADER OPERATION: Elliptical biopsy PRE-OP DIAGNOSIS: Left breast neoplasm TISSUE SUBMITTED: 1cm biopsy left breast, 6o'clock neoplasm MICROSCOPIC DIAGNOSIS Left breast skin lesion, 6o'clock, excisional biopsy: Inflamed verrucous keratosis. Negative for malignancy. See comment. 03/29/2024 COMMENT Clinical correlation and appropriate follow up are necessary. MICROSCOPIC DESCRIPTION Slides are reviewed. GROSS DESCRIPTION Received in fixative is one container labeled with the patient's name and designated Left breast biopsy. The specimen consists of a piece of marion-brown skin measuring 1 x 0.5 x 0.4cm. The specimen is inked, serially sectioned and submitted entirely in one cassette. 03/28/2024 TC:5 CPT:45833
== END | disposition home or self-care (01) ==
PROVIDERS: PCP Family Medicine; Referring Provider Family Medicine; Visit Provider Family Medicine
DX: D49.2 Neoplasm of unspecified behavior of bone, soft tissue, and skin (principal)
CPT/HCPCS: 88305

== ENCOUNTER → 2024-04-04 | Outpatient (CLI) | payer MEDICARE, SELFPAY ==
--- NOTE | 2024-04-04 13:46 | RAD_ITS ---
PROCEDURE: HIPS B/L MIN 2 VIEWS W/ PELVIS REASON FOR EXAM: 64-year-old female, right hip pain. TECHNIQUE: Two views of the bilateral hips. COMPARISON: None. FINDINGS: No acute osseous fracture. No suspicious bone lesion. Moderate degenerative arthrosis of the right hip joint. Mild bilateral SI joint, pubic symphysis and left hip arthrosis. Soft tissues are unremarkable. RAD/Hips B/L min 2 views w/ Pelvis IMPRESSION: DEGENERATIVE OSTEOARTHROSIS. NO ACUTE FINDINGS. Reading Location: [id number]
== END | disposition home or self-care (01) ==
LOC: MTRAD 13:44
PROVIDERS: PCP Family Medicine; Referring Provider Family Medicine; Visit Provider Family Medicine
DX: M25.551 Pain in right hip (principal)
CPT/HCPCS: 73521

== ENCOUNTER 2024-05-15 07:17 | Day surgery (SDC) | payer MEDICARE, SELFPAY ==
[2024-05-15] VITALS (7 sets, daily range): BP systolic 100–125; BP diastolic 64–78; PULSE 95–117; RESP 16; TEMP 36.1–36.6; O2SAT 91–100; BMI 37.7
--- NOTE | 2024-05-15 07:52 | PRE.ANES_ITS ---
ASA Classification* ASA Classification ASA Classification: 2 Assessment & Plan Anesthesia* Anesthesia Assessment Anesthesia Assessment: Discussed sedation and/or anesthesia options, risks, benefits, and alternatives with patient/parents/legal guardian/POA. Questions invited. The patient/parents/legal guardian/POA seems to understand and agrees to proceed with anesthesia plan. Reviewed the physical assessment, medical history, allergy history and patient home medications list prior to surgery/procedure/anesthetic and documented any changes. Performed airway and anesthesia risk assessments. Anesthesia Type Anesthesia Type: MAC Anesthesia Focused Assessment* Temperature: 96.9 F Pulse Rate: 117 Blood Pressure: 125/73 Respiratory Rate: 16 Pulse Ox: 100 Airway Assessment Mouth opens: >3 cm Mallampati Score: II Focused Labs Anesthesia Preop lab: CBC WBC 9.7 K/mm3 (4.4-11.0) 12/10/21 13:57 12/10/21 RBC 5.63 M/mm3 (4.2-5.4) H 12/10/21 13:57 12/10/21 Hgb 16.2 g/dL (12.0-15.0) H 12/10/21 13:57 2 Hct 51.4 % (37-47) H 12/10/21 13:57 12/10/21 Plt Count 353 K/mm3 (150-450) 12/10/21 13:57 12/10/21 CHEMISTRY Potassium 3.5 mmol/L (3.5-5.1) 03/18/24 14:04 03/18/24 Sodium 138 mmol/L (136-145) 03/18/24 14:04 03/18/24 BUN 16 mg/dL (7-18) 03/18/24 14:04 03/18/24 Creatinine 0.93 mg/dL (0.55-1.02) 03/18/24 14:04 03/18/24 Glucose 173 mg/dL (74-106) H 03/18/24 14:04 03/18/24 TSH 0.760 uIU/mL (0.358-3.740) 03/18/24 14:04 03/09 COAG Pre-Assessment Diagnosis/Proposed Procedure Planned Operative Procedure(s): COLONOSCOPY Anesthesia History Anesthesia History - media theorist and author of: Anesthesia History - media theorist and author of Hx Hospitalization No 05/13/24 08:37 Any Problems With Anesthesia No 05/13/24 08:37 Cholinesterase deficiency No 05/13/24 08:37 You/Your Family Experience No 05/13/24 08:37 fever (hyperthermia) with Relationship Recent Exposure to Contagious No 05/15/24 07:39 Disease Does patient have nerve No 05/13/24 08:37 stimulator Patient instructed to have device shut off --Does patient have Pacemaker No 05/15/24 07:39 or ICD? When Was Last Pacemaker Check QUESTION #4 FULL TEXT: You/Your Family Experience fever (hyperthermia) with Anesthesia Last Oral Intake Last Oral intake: Last Oral Intake NPO since :30 05/15/24 07:39 Meds taken in AM with sips of Yes 05/15/24 07:39 water? Meds patient instructed to synthroid 05/15/24 07:39 take am of surgery PONV PONV - media theorist and author of: PONV - media theorist and author of Female Yes 05/13/24 08:37 HX of Motion Sickness No 05/13/24 08:37 HX of N/V After Surgery No 05/13/24 08:37 Non-Smoker Yes 05/13/24 08:37 Duration of Surgery greater No 05/13/24 08:37 than 60 minutes Number of Risk Factors 2 05/13/24 08:37 PONV Score Moderate Risk 05/13/24 08:37 Height & Weight Height & Weight: Anesthesia: Height & Weight Height 5 ft 6 in 05/15/24 07:39 Weight: 106 kg 05/15/24 07:39 Body Mass Index (BMI) 37.7 05/15/24 07:39 Respiratory Assessment Respiratory Assessment - media theorist and author of: Respiratory Tract Infection Hx - media theorist and author of Hx Respiratory Tract Infection No 05/13/24 08:37 STOP Sleep Apnea STOP Sleep Apnea - media theorist and author of: STOP Sleep Apnea - media theorist and author of Hx Hypertension No 05/13/24 08:37 Hx Sleep Apnea No 05/13/24 08:37 CPAP BIPAP Do you snore loudly (louder No 05/13/24 08:37 than talking or can be heard Do you often feel tired/ No 05/13/24 08:37 fatigued/ sleepy during daytime? Has anyone observed you stop No 05/13/24 08:37 breathing during sleep? STOP Results Negative 05/13/24 08:37 QUESTION #5 FULL TEXT : Do you snore loudly (louder than talking or can be heard through closed doors)? Tobacco Use History Tobacco Use History - media theorist and author of: Tobacco Use History - media theorist and author of Tobacco Use Smoking Status Former smoker 05/13/24 08:37 Hx Tobacco Use No 05/13/24 08:37 Years Smoking Packs Smoked per Day Smoking Cessation Date was No - quit smoking greater 05/13/24 08:37 within the last 15 years than 15 years ago Hx Smoking Cessation Date Hx Smoking Cessation Counseling Hematologic Medial History Hematologic Hx - media theorist and author of: Hematologic Medical Hx - clinical documentation manager Hx of Blood Transfusion No 05/13/24 08:37 Hx of Transfusion in last 3 No 05/13/24 08:37 Months Date of Last Transfusion (if within last 3 months) Ever experience any problems No 05/13/24 08:37 with transfusion(s)? Specify any problems Hx of Preganancy in last 3 No 05/13/24 08:37 Months Nurse Filling Out Transfusion VCHRISTIN 05/13/24 08:37 & Questions: Date: 05/13/24 05/13/24 08:37 Time: 08:38 05/13/24 08:37 Patient unable to answer at this time (ie. 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 Hypothyroidism Diabetes HTN (hypertension) Home Medications ?Medication ?Instructions ?Recorded ?Last Taken ?Type citalopram 40 mg tablet 40 mg PO DAILY 03/03/1409/30 History lisinopril 20 mg tablet 20 mg PO DAILY 03/03/1409/30 History donepezil 5 mg tablet 10 mg PO QHS 03/21/24 History empagliflozin 25 mg tablet 25 mg PO QDAY 03/21/2405/31 History (Jardiance) glimepiride 4 mg tablet 4 mg PO BID 03/21/24 5 History hydroxyzine HCl 50 mg tablet 100 mg PO QHS 03/21/24 History levothyroxine 175 mcg tablet 175 mcg PO DAILY 03/21/24 05/15/24 History nortriptyline 50 mg capsule 50 mg PO QHS 03/21/2409/30 History rosuvastatin 40 mg tablet 40 mg PO QDAY 03/21/2405/14 History semaglutide 2 mg/dose (8 mg/3 mL) 2 mg subcut QWEEK 05/06/24 History subcutaneous pen injector (Ozempic) acetaminophen 500 mg capsule 500 mg PO Q6H PRN pain Unknown History meloxicam 15 mg tablet 15 mg PO DAILY 05/13/2409/30 History Allergy/AdvReac Type Severity Reaction Status Date / Time No Known Allergies Allergy Verified 05/15/24 07:38 Surgical History Hx of laparoscopy Hx of hysterectomy Hx of colonoscopy Social History household members: spouse current occupational status: retired Smoking Status: Former smoker alcohol intake: never substance use type: does not use Review of Systems (Anesthesia) ROS Narrative System reviewed and no additional complaints, except as documented.
--- NOTE | 2024-05-15 07:55 | HP.PCM_ITS ---
[facility] - General General Date of Service: 05/15/24 HPI Narrative NANETTE WILHELM, is a 64 F who presents for a screening colonoscopy. Patient last colonoscopy was 10 years ago negative per patient. Patient denies any immediate family history of colon cancer?paternal aunt in her 30s to 40s. Patient has bowel movements daily denies any blood. Patient denies any chronic abdominal pain/nausea/vomiting/reflux. 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 Hypothyroidism Diabetes HTN (hypertension) Home Medications ?Medication ?Instructions ?Recorded ?Last Taken ?Type citalopram 40 mg tablet 40 mg PO DAILY 03/03/1409/30 History lisinopril 20 mg tablet 20 mg PO DAILY 03/03/1409/30 History donepezil 5 mg tablet 10 mg PO QHS 03/21/24 History empagliflozin 25 mg tablet 25 mg PO QDAY 03/21/2405/31 History (Jardiance) glimepiride 4 mg tablet 4 mg PO BID 03/21/24 5 History hydroxyzine HCl 50 mg tablet 100 mg PO QHS 03/21/24 History levothyroxine 175 mcg tablet 175 mcg PO DAILY 03/21/24 05/15/24 History nortriptyline 50 mg capsule 50 mg PO QHS 03/21/2409/30 History rosuvastatin 40 mg tablet 40 mg PO QDAY 03/21/2405/14 History semaglutide 2 mg/dose (8 mg/3 mL) 2 mg subcut QWEEK 05/06/24 History subcutaneous pen injector (Ozempic) acetaminophen 500 mg capsule 500 mg PO Q6H PRN pain Unknown History meloxicam 15 mg tablet 15 mg PO DAILY 05/13/2409/30 History Allergy/AdvReac Type Severity Reaction Status Date / Time No Known Allergies Allergy Verified 05/15/24 07:38 Surgical History Hx of laparoscopy Hx of hysterectomy Hx of colonoscopy Social History household members: spouse current occupational status: retired Smoking Status: Former smoker alcohol intake: never substance use type: does not use Past Medical/Surgical History Planned Operation Planned Operative Procedure(s): COLONOSCOPY Previous Hospitalizations/Surgeries HX Hospitalizations: No Any Problems With Anesthesia: No You/Your Family Experience Fever (Hyperthermia) With Anes: No Cholinesterase deficiency: No Cardiovascular Hx of Irregular Heartbeat and/or Afib: No Hx Heart Attack: No Hx Congestive Heart Failure: No
--- NOTE | 2024-05-15 07:55 | H&P.OPEN ---
HPI - General General Date of Service: 05/15/24 HPI Narrative NANETTE WILHELM, is a 64 F who presents for a screening colonoscopy. Patient last colonoscopy was 10 years ago negative per patient. Patient denies any immediate family history of colon cancer?paternal aunt in her 30s to 40s. Patient has bowel movements daily denies any blood. Patient denies any chronic abdominal pain/nausea/vomiting/reflux. 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 Hypothyroidism Diabetes HTN (hypertension) Home Medications ?Medication ?Instructions ?Recorded ?Last Taken ?Type citalopram 40 mg tablet 40 mg PO DAILY 03/03/14 05/14/24 History lisinopril 20 mg tablet 20 mg PO DAILY 03/03/14 05/14/24 History donepezil 5 mg tablet 10 mg PO QHS 03/21/24 05/14/24 History empagliflozin 25 mg tablet 25 mg PO QDAY 03/21/24 05/10/24 History (Jardiance) glimepiride 4 mg tablet 4 mg PO BID 03/21/24 05/14/24 History hydroxyzine HCl 50 mg tablet 100 mg PO QHS 03/21/24 05/14/24 History levothyroxine 175 mcg tablet 175 mcg PO DAILY 03/21/24 05/15/24 History nortriptyline 50 mg capsule 50 mg PO QHS 03/21/24 05/14/24 History rosuvastatin 40 mg tablet 40 mg PO QDAY 03/21/24 05/14/24 History semaglutide 2 mg/dose (8 mg/3 mL) 2 mg subcut QWEEK 03/21/24 05/06/24 History subcutaneous pen injector (Ozempic) acetaminophen 500 mg capsule 500 mg PO Q6H PRN pain 05/13/24 Unknown History meloxicam 15 mg tablet 15 mg PO DAILY 05/13/24 05/14/24 History Allergy/AdvReac Type Severity Reaction Status Date / Time No Known Allergies Allergy Verified 05/15/24 07:38 Surgical History Hx of laparoscopy Hx of hysterectomy Hx of colonoscopy Social History household members: spouse current occupational status: retired Smoking Status: Former smoker alcohol intake: never substance use type: does not use Past Medical/Surgical History Planned Operation Planned Operative Procedure(s): COLONOSCOPY Previous Hospitalizations/Surgeries HX Hospitalizations: No Any Problems With Anesthesia: No You/Your Family Experience Fever (Hyperthermia) With Anes: No Cholinesterase deficiency: No Cardiovascular Hx of Irregular Heartbeat and/or Afib: No Hx Heart Attack: No Hx Congestive Heart Failure: No Hx Hypertension: No Hx Pacemaker: No Respiratory Hx Chronic Obstructive Pulmonary Disease (COPD): No Hx Asthma: No Hx Emphysema: No Hx Sleep Apnea: No Hx Respiratory Tract Infection/Cold (presently): No Do You Snore Loudly (louder than talking or can be heard): No Do You Often Feel Tired/ Fatigued/ Sleepy Dring Daytime?: No Has Anyone Observed You Stop Breathing During Sleep?: No Result (for STOP score): Negative Smoking Status: Former smoker Gastrointestinal Hx Ulcer: No Neurological Hx Seizures: No Hx Head/Neck Injury: No Hx Headaches: No Hx Back Injury/Pain: No Does patient have nerve stimulator: No Miscellaneous Recent Exposure to Contagious Disease: No Allergies No Known Allergies Allergy (Verified 05/15/24 07:38) Discharge Is Pt Admitted From a Fpc, or a Intermediate: No After D/C, Where Do you Plan to Go: Return Home Vital Signs Vital Signs Vital Signs: 05/15/24 07:39 05/15/24 07:39 05/15/24 07:53 Temperature 96.9 F L 96.9 F L Temperature Source Temporal Pulse Rate 117 H 117 H Respiratory Rate 16 16 Respiratory Pattern Normal Blood Pressure 125/73 H 125/73 H Blood Pressure Mean 90 Blood Pressure Source Monitor Blood Pressure Position Semi-Fowlers Blood Pressure Location Left Arm Pulse Ox 100 100 Oxygen Delivery Method Room Air Weight Weight: 233 lb 11.04 oz Body Mass Index (BMI) 37.7 Physical Exam Const alert, oriented x3 and no apparent distress HEENT normocephalic and head/scalp atraumatic Resp normal respiratory effort Cardio regular rate GI soft to palpation and non-tender; Negative for non-distended Palpation: Negative for guarding Extremity no clubbing, cyanosis or edema Skin no rashes or lesions noted Neuro CN's II-XII intact bilaterally Psych mental status grossly normal Assessment & Plan Assessment/Plan (1) Encounter for screening for malignant neoplasm of colon: Surgery Risks - Colonoscopy I discussed with the patient the risks of the procedure: Yes Risks Include but are not Limited To: Risks include but are not limited to: Bleeding, perforation requiring further surgery, inability to complete colonoscopy requiring barium enema.
[2024-05-15 08:01] LABS: Bedside Glucose 234 mg/dL (74-106)
--- NOTE | 2024-05-15 08:45 | COLBX_PTH ---
PATIENT: NANETTE WILHELM LOC: EN U#:[id number] AGE/SX: 64/F ROOM: RE05/15/[address]: Dr. Kajal Gore MD : 1960 BED: DIS: 05/15/2024 SPEC #: [id number] RECD: 05/15/24 11:43 STATUS: ROLAND REShannan #: [id number] MASOUD: 05/15/24 08:[address]: Kajal Gore DEPT: SURGICAL PATHOLOGY RECD BY: Evelio Benjamin ENTERED: 05/15/24 11:46 SP TYPE: COLON BX OTHR DR: Dr. Liu Segundo MD Tissues: A - Cecum, NOS B - Descending colon C - Sigmoid colon biopsy D - Rectum, NOS Procedures: Surgery Specimen Level IV HEADER OPERATION: Colonoscopy with biopsy PRE-OP DIAGNOSIS: Encounter for screening for malignant neoplasm of colon TISSUE SUBMITTED: A- Cecum polyp biopsy, B- Descending colon polyp biopsy x3, C- Sigmoid polyp biopsy, D- Rectal polyp biopsy x2 MICROSCOPIC DIAGNOSIS A. Colon, cecum, polyp, biopsy: * Tubular adenoma. B. Descending colon, polyp x 3, biopsy: * Tubular adenoma (one fragment). * Superficial hyperplastic change (multiple fragments). C. Sigmoid colon, polyp x 2, biopsy: * Hyperplastic polyp x2. D. Rectum, polyp x 2, biopsy: * Hyperplastic polyp x2. MICROSCOPIC DESCRIPTION Slides are reviewed. GROSS DESCRIPTION A. Received in formalin in a container labeled with the patient's name, date of , and cecal polyp biopsy is a 0.4 x 0.4 x 0.2 cm fragment of marion-pink mucosal tissue. Submitted in toto in A1. B. Received in formalin in a container labeled with the patient's name, date of , and descending colon polyp biopsy x 3 are multiple marion-pink fragments of mucosal tissue measuring 1.0 x 0.8 x 0.2 cm in aggregate. Submitted in toto in B1. C. Received in formalin in a container labeled with the patient's name, date of , and sigmoid polyp biopsy x 2 are multiple marion-pink fragments of mucosal tissue measuring 1.0 x 0.7 x 0.3 cm in aggregate. Submitted in toto in C1. D. Received in formalin in a container labeled with the patient's name, date of , and rectal polyp biopsy x 2 are 2 marion-pink fragments of mucosal tissue, each measuring 0.3 x 0.2 x 0.2 cm. Submitted in toto in D1. SMB 05-15-2024 CPT:54774w2
--- NOTE | 2024-05-15 09:32 | OP.COLON_ITS ---
Patient Name: Delmy Pacheco Procedure Date: 05/15/2024 8:48 AM Date of : 1960 Age: 64 Procedure: Colonoscopy Indications: Screening for colorectal malignant neoplasm Providers: Kajal Gore MD Referring MD: Liu Segundo MD Medicines: Monitored Anesthesia Care Patient Profile: This is a 64 year old female. Last Colonoscopy: 10 years ago. Complications: No immediate complications. Procedure: Pre-Anesthesia Assessment: - Prior to the procedure, a History and Physical was performed, and patient medications and allergies were reviewed. The patient's tolerance of previous anesthesia was also reviewed. The risks and benefits of the procedure and the sedation options and risks were discussed with the patient. All questions were answered, and informed consent was obtained. Prior Anticoagulants: The patient has taken no anticoagulant or antiplatelet agents. ASA Grade Assessment: Per anesthesia. After reviewing the risks and benefits, the patient was deemed in satisfactory condition to undergo the procedure. After I obtained informed consent, the scope was passed under direct vision. Throughout the procedure, the patient's blood pressure, pulse, and oxygen saturations were monitored continuously. The Colonoscope was introduced through the anus and advanced to the cecum, identified by the appendiceal orifice, ileocecal valve and palpation. The colonoscopy was performed without difficulty. The patient tolerated the procedure well. The quality of the bowel preparation was good. Scope In: 8:56:30 AM Scope Withdrawal Time 0 hours 19 minutes 25 seconds Scope Out: 9:22:56 AM Total Procedure Duration Time 0 hours 26 minutes 26 seconds Findings: The perianal and digital rectal examinations were normal. Nine sessile polyps were found in the rectum, sigmoid colon, descending colon and cecum. The polyps were less than 5 mm in size. These polyps were removed with a cold biopsy forceps. Resection and retrieval were complete. The exam was otherwise without abnormality on direct and retroflexion views. Impression: - Nine less than 5 mm polyps in the rectum, in the sigmoid colon, in the descending colon and in the cecum, removed with a cold biopsy forceps. Resected and retrieved. - The examination was otherwise normal on direct and retroflexion views. Recommendation: - Discharge patient to home. - Resume previous diet. - Continue present medications. - Await pathology results. - Repeat colonoscopy in 3 - 5 years for surveillance based on pathology results. Procedure Code(s): --- Professional --- 05952, PT, Colonoscopy, flexible; with biopsy, single or multiple Diagnosis Code(s): --- Professional --- Z12.11, Encounter for screening for malignant neoplasm of colon D12.8, Benign neoplasm of rectum D12.5, Benign neoplasm of sigmoid colon D12.4, Benign neoplasm of descending colon D12.0, Benign neoplasm of cecum CPT copyright 2021 [employer]. All rights reserved. The codes documented in this report are preliminary and upon hospice clinical manager review may be revised to meet current compliance requirements. MD Kajal Deleon MD 05/15/2024 9:31:32 AM This report has been signed electronically. Number of Addenda: 0 Note Initiated On: 05/15/2024 8:48 AM
--- NOTE | 2024-05-15 09:32 | OP.CCLET_ITS ---
05/15/2024 Liu Segundo MD [address] [place] [address] Re : Colonoscopy procedure for Delmy Pacheco Dear Dr. Segundo This procedure was performed on Wednesday, May 15, 2024. My impressions and recommendations are as follows: Impressions : - Nine less than 5 mm polyps in the rectum, in the sigmoid colon, in the descending colon and in the cecum, removed with a cold biopsy forceps. Resected and retrieved. - The examination was otherwise normal on direct and retroflexion views. Recommendations : - Discharge patient to home. - Resume previous diet. - Continue present medications. - Await pathology results. - Repeat colonoscopy in 3 - 5 years for surveillance based on pathology results. My findings are described in the full procedure note, which is enclosed. If I can be of further assistance, please feel free to contact me at Doctor phone number(s): , Work: . Sincerely, MD Kajal Deleon MD 05/15/2024 9:31:32 AM This report has been signed electronically.
--- NOTE | 2024-05-15 09:32 | PCM.POST.ANE ---
Anesthesia: Postop Eval I Current Vital Signs Temperature: 97.7 F Pulse Rate: 97 Blood Pressure: 100/78 Respiratory Rate: 16 Pulse Ox: 97 Oxygen Delivery Method: Room Air Assessment Airway patent: Yes Spontaneous unlabored respirations: Yes Mental status: Awake and Calm nausea: No Vomiting: No Anesthesia Complication: No Fluid Hydration Crystalloid volume administer (ml): 70 Total IV fluid infused: 70 Progress Note Anesthesia document: Postop Eval 1 completed: Yes
--- NOTE | 2024-05-15 11:05 | PCM.POSTANE2 ---
Anesthesia Postop Eval I Sum Postop Eval Completion status Anesthesia document: Postop Eval 1 completed: Yes Anesthesia Postop Eval I Summary Anesthesia Postop Eval I Summary: Anesthesia Postop Eval I: Assessment Summary Airway patent Yes 05/15/24 09:33 [email or web address] Spontaneous unlabored Yes 05/15/24 09:33 [email or web address] respirations Mental status Awake,Calm 05/15/24 09:33 [email or web address] nausea No 05/15/24 09:33 [email or web address] Vomiting No 05/15/24 09:33 [email or web address] Anesthesia Postop Eval I: Fluid Summary Crystalloid volume administer 70 05/15/24 09:33 [email or web address] (ml) Colloids volume administered ( ml) Blood Product volume administered (ml) Total IV fluid infused 70 05/15/24 09:33 [email or web address] Anesthesia Postop Eval I: Summary Notes Anesthesia Complication No 05/15/24 09:33 [email or web address] Anesthesia Complication Comment: Post-operative progress note Anesthesia: Postop Eval II Evaluation Mental status: Awake Pain Level: 0 nausea: No Vomiting: No
== END 2024-05-15 10:05 | disposition home or self-care (01) ==
LOC: EN 07:18 → AC 07:19
PROVIDERS: PCP Family Medicine; Referring Provider Family Medicine; Visit Provider Surgery
PROC: 0DJD8ZZ Inspection of Lower Intestinal Tract, Via Natural or Artificial Opening Endoscopic (ICD-10-PCS; CPT 45378; principal; 2024-05-15 08:40)
DX: Z12.11 Encounter for screening for malignant neoplasm of colon (principal); E11.9 Type 2 diabetes mellitus without complications; D12.0 Benign neoplasm of cecum; Z79.890 Hormone replacement therapy; Z79.84 Long term (current) use of oral hypoglycemic drugs; Z87.891 Personal history of nicotine dependence; Z90.710 Acquired absence of both cervix and uterus; I10 Essential (primary) hypertension; F32.A Depression, unspecified; Z79.899 Other long term (current) drug therapy; E03.9 Hypothyroidism, unspecified; K63.5 Polyp of colon; K62.1 Rectal polyp
CPT/HCPCS: 45380; 82962; 88305; A4216; J2405

== ENCOUNTER → 2024-06-20 | Outpatient (CLI) | payer MEDICARE, SELFPAY ==
[2024-06-20 18:16] LABS: ALB/GLOB Ratio 1.5 RATIO (0.9-2.4); AST(SGOT) 29 U/L (<=31); Alanine Aminotransfer ALT/SGPT 39 U/L (<=34); Albumin, Serum 4.3 g/dL (3.4-4.8); Alkaline Phosphatase 67 U/L (35-104); Anion Gap 13 (5-15); BUN 16 mg/dL (4-19); Calcium,Total 9.7 mg/dL (7.6-11.0); Carbon Dioxide 23.4 mmol/L (21.0-32.0); Chloride 104 mmol/L (98-108); Cholesterol 134 mg/dL (<=200); Creatinine, Serum 0.87 mg/dL (0.70-1.20); EST Glomerular Filtration Rate 74 (>60); Free T3 2.7 pg/mL (2.18-3.98); Globulin 2.8 g/dL (2.2-4.2); Glucose 136 mg/dL (70-99); High Density Lipoprotein 50 mg/dL; Low Density Lipoprotein Calc. 58 mg/dL; Potassium 3.7 mmol/L (3.3-5.1); Protein, Total 7.2 g/dL (5.9-8.4); Sodium Level 140 mmol/L (133-145); Total Bilirubin 0.55 mg/dL (0.00-1.30); Triglycerides 130 mg/dL; Very Low Density Lipoprotein 26 mg/dL (5-40); cholesterol:hdl ratio screen 2.66
[2024-06-20 19:41] LABS: Microalbumin,Random Urine < 12.0 mg/L (NO RANGE EST.); Microalbumin:Creatinine Ratio UNABLE TO CALCULATE mg/g CRE
== END | disposition home or self-care (01) ==
LOC: MFPLAB 13:56
PROVIDERS: PCP Family Medicine; Referring Provider Family Medicine; Visit Provider Family Medicine
DX: E03.9 Hypothyroidism, unspecified (principal); E11.9 Type 2 diabetes mellitus without complications
CPT/HCPCS: 36415; 80053; 80061; 82043; 82570; 84439; 84443; 84481

== ENCOUNTER → 2024-09-25 | Outpatient (CLI) | payer MEDICARE, SELFPAY ==
[2024-09-25 18:27] LABS: AST(SGOT) 37 U/L (<=31); Alanine Aminotransfer ALT/SGPT 64 U/L (<=34); Albumin, Serum 4.3 g/dL (3.4-4.8); Alkaline Phosphatase 84 U/L (35-104); Anion Gap 17 (5-15); BUN 20 mg/dL (4-19); BUN/Creat Ratio 17.9 RATIO (10-20); Calcium,Total 10.2 mg/dL (7.6-11.0); Carbon Dioxide 21.2 mmol/L (21.0-32.0); Chloride 99 mmol/L (98-108); Cholesterol 161 mg/dL (<=200); Free T3 2.8 pg/mL (2.18-3.98); Globulin 3.1 g/dL (2.2-4.2); Glucose 192 mg/dL (70-99); Low Density Lipoprotein Calc. 72 mg/dL; Potassium 4.2 mmol/L (3.3-5.1); Triglycerides 198 mg/dL; Very Low Density Lipoprotein 40 mg/dL (5-40); cholesterol:hdl ratio screen 3.26
== END | disposition home or self-care (01) ==
LOC: MFPLAB 13:54
PROVIDERS: PCP Family Medicine; Referring Provider Family Medicine; Visit Provider Family Medicine
DX: E03.9 Hypothyroidism, unspecified (principal); E11.9 Type 2 diabetes mellitus without complications
CPT/HCPCS: 36415; 80053; 80061; 84439; 84443; 84481

== ENCOUNTER → 2024-12-23 | Outpatient (CLI) | payer MEDICARE, SELFPAY ==
[2024-12-23 18:17] LABS: AST(SGOT) 67 U/L (<=31); Alanine Aminotransfer ALT/SGPT 97 U/L (<=34); Albumin, Serum 4.3 g/dL (3.4-4.8); Alkaline Phosphatase 69 U/L (35-104); Anion Gap 12 (5-15); BUN 13 mg/dL (4-19); BUN/Creat Ratio 13.9 RATIO (10-20); Calcium,Total 9.5 mg/dL (7.6-11.0); Carbon Dioxide 23.6 mmol/L (21.0-32.0); Chloride 103 mmol/L (98-108); Free T3 3.3 pg/mL (2.18-3.98); Globulin 3.0 g/dL (2.2-4.2); Glucose 155 mg/dL (70-99); Potassium 4.3 mmol/L (3.3-5.1)
== END | disposition home or self-care (01) ==
LOC: MFPLAB 13:54
PROVIDERS: PCP Family Medicine; Visit Provider Family Medicine
DX: E03.9 Hypothyroidism, unspecified (principal); E11.9 Type 2 diabetes mellitus without complications
CPT/HCPCS: 36415; 80053; 84439; 84443; 84481